=== PATIENT | female | born 1985 | race Caucasian/White ===

== ENCOUNTER 2022-11-19 09:20 | Emergency (ER) | payer MEDICAID ==
[~2022-11-19] VITALS: Ht 172.7 cm; Wt 69.0 kg
[2022-11-19] MEDS ORDERED: LACT10SY PO (09:36)
[2022-11-19] MEDS ORDERED: GABA300 PO (09:36)
[2022-11-19] MEDS ORDERED: POTA10T (09:36)
[2022-11-19] MEDS ORDERED: LATUDA20 M1 (09:37)
[2022-11-19] MEDS ORDERED: SPIR50 PO (09:37)
[2022-11-19] MEDS ORDERED: Inderal40 MG (09:37)
[2022-11-19] MEDS ORDERED: FURO40 (09:38)
[2022-11-19] MEDS ORDERED: ONDA4 PO (09:38)
[2022-11-19 09:45] LABS: BASOPHILS ABSOLUTE AUTO 0.05 K/mm3 (0.00-0.23); BASOPHILS PERCENT AUTO 1 % (0-2); EOSINOPHILS ABSOLUTE AUTO 0.11 K/mm3 (0.00-0.68); EOSINOPHILS PERCENT AUTO 3 % (0-6); Hematocrit 36.4 % (33.0-51.0); IMMATURE GRAN ABSOLUTE AUTO 0.02 K/mm3 (0.00-0.10); IMMATURE GRAN PERCENT AUTO 1 % (0-1); LYMPHOCYTES ABSOLUTE AUTO 0.63 K/mm3 (0.84-5.20); LYMPHOCYTES PERCENT AUTO 15 % (21-46); MONOCYTES ABSOLUTE AUTO 0.62 K/mm3 (0.16-1.47); MONOCYTES PERCENT AUTO 15 % (4-13); Mean Corpuscular HGB 32.3 pg (26.0-34.0); Mean Corpuscular Volume 98 fL (80-100); Mean Platelet Volume 11.4 fL (9.1-12.4); NEUTROPHILS ABSOLUTE AUTO 2.86 K/mm3 (1.96-9.15); NEUTROPHILS PERCENT AUTO 67 % (41-73); Platelet Count 69 K/mm3 (150-400); RDW Coefficient Variation 18.6 % (11.7-14.2); RDW Standard Deviation 66.2 fL (35.1-46.3); Red Blood Cell Count 3.72 M/mm3 (3.80-5.20); White Blood Cell Count 4.29 K/mm3 (4.00-11.30)
[2022-11-19 10:00] LABS: Albumin, Blood 2.7 g/dL (3.4-5.0); Albumin/Globulin Ratio 0.7 (0.8-1.8); Bilirubin, Total 3.2 mg/dL (0.1-1.0); Bun/Creatinine Ratio 12.3 (12.0-20.0); Calcium, Blood 8.5 mg/dL (8.5-10.1); Creatinine, Blood 0.65 mg/dL (0.40-1.00); Globulin, Blood 3.7 g/dL (2.2-4.0); Potassium, Blood 3.9 mmol/L (3.5-5.5); Total Protein, Blood 6.4 g/dL (6.4-8.2)
[2022-11-19] MEDS ORDERED: FURO20 PO (10:02)
[2022-11-19] MEDS ORDERED: BUPR75 PO (10:03)
[2022-11-19] MEDS ORDERED: MIDO5 PO (10:03)
[2022-11-19] MEDS ORDERED: PROP10 PO ×2 (10:07→11:57)
[2022-11-19] MEDS ORDERED: FAMO40 PO (10:07)
[2022-11-19] MEDS ORDERED: Celexa20 MG PO ×2 (10:08→11:57)
[2022-11-19] MEDS ORDERED: SPIR25 PO ×2 (10:08→11:57)
[2022-11-19] MEDS ORDERED: RIFA550T2 PO (10:09)
[2022-11-19 11:45] VITALS: BP 89/58
[2022-11-19] MEDS ORDERED: LATUDA20 M1 PO (11:57)
[2022-11-19] MEDS ORDERED: Lasix20 MG PO (11:57)
[2022-11-19] MEDS ORDERED: Neurontin 300300 MG PO (11:57)
[2022-11-19] MEDS ORDERED: POTCHL20ER PO (11:57)
[2022-11-19] MEDS ORDERED: IBUP800 PO (11:57)
[2022-11-19] MEDS ORDERED: Pepcid40 MG PO (11:57)
== END 2022-11-19 12:40 | disposition home or self-care (01) ==
LOC: ER 09:20
PROVIDERS: Physician Assistant
DX: R51.9 Headache, unspecified (principal); R10.84 Generalized abdominal pain; K74.60 Unspecified cirrhosis of liver; T76.11XA Adult physical abuse, suspected, initial encounter; Z76.0 Encounter for issue of repeat prescription; Z79.899 Other long term (current) drug therapy
CPT/HCPCS: 70450; 74177; 80053; 82140; 85025; 93005; 93010; 96361; 96374-59; 99285-25; A9270; J1885; J7030; Q9967

== ENCOUNTER 2022-11-20 23:23 | Emergency (ER) | payer OTHER ==
[~2022-11-20] VITALS: Ht 172.7 cm; Wt 69.0 kg
[~2022-11-20 23:23] MED LIST: BUPR75 PO; Celexa20 MG PO; FAMO40 PO; FURO20 PO; FURO40; GABA300 PO; IBUP800 PO; Inderal40 MG; LACT10SY PO; LATUDA20 M1; LATUDA20 M1 PO; Lasix20 MG PO; MIDO5 PO; Neurontin 300300 MG PO; ONDA4 PO; POTA10T; POTCHL20ER PO; PROP10 PO; Pepcid40 MG PO; RIFA550T2 PO; SPIR25 PO; SPIR50 PO
[2022-11-20 23:36] VITALS: BP 128/72
[2022-11-21 01:07] LABS: Source, Urine Clean Catch
[2022-11-21 01:11] LABS: Bilirubin, Urine Neg (Neg); Blood, Urine 3+ (Neg); Glucose Qualitative, Urine Neg (Neg); Ketones, Urine Neg (Neg); Leukocyte Esterase, Urine 3+ (Neg); Nitrite, Urine Pos (Neg); Protein, Urine 1+ (Neg); Specific Gravity, Urine 1.015 (1.003-1.022); Urobilinogen, Urine 2+ (Normal); pH, Urine 6.5 (5.0-8.0)
[2022-11-21 01:16] LABS: Appearance, Urine Hazy (Clear); Color, Urine Yellow (P-Yellow)
[2022-11-21 01:21] LABS: Bacteria Many /hpf; Red Blood Cells, Urine 0-2 /hpf (0-2); Squamous Epithelial Cells Rare /hpf (Few); White Blood Cells, Urine TNTC /hpf (0-5)
[2022-11-21] MEDS ORDERED: SULTRIDS PO (01:55)
[2022-11-21] MEDS ORDERED: ONDA4ODT MM (01:55)
[2022-11-22] MEDS ORDERED: AMOCLA875 PO (21:54)
== END 2022-11-21 02:30 | disposition home or self-care (01) ==
LOC: ER 23:23
PROVIDERS: Surgery
DX: N39.0 Urinary tract infection, site not specified (principal); Z79.899 Other long term (current) drug therapy; J45.909 Unspecified asthma, uncomplicated
CPT/HCPCS: 81001; 87077; 87086; 87186; 94640; 94664; 99283-25; A9270

== ENCOUNTER 2022-11-22 15:56 | Emergency (ER) | payer OTHER ==
[~2022-11-22] VITALS: Ht 172.7 cm; Wt 67.1 kg
[~2022-11-22 15:56] MED LIST changes: +ONDA4ODT MM; +SULTRIDS PO
[2022-11-22 17:11] LABS: BASOPHILS ABSOLUTE AUTO 0.06 K/mm3 (0.00-0.23); BASOPHILS PERCENT AUTO 2 % (0-2); EOSINOPHILS ABSOLUTE AUTO 0.08 K/mm3 (0.00-0.68); EOSINOPHILS PERCENT AUTO 2 % (0-6); Hematocrit 35.3 % (33.0-51.0); Hemoglobin 11.8 g/dL (11.5-16.0); IMMATURE GRAN ABSOLUTE AUTO 0.01 K/mm3 (0.00-0.10); IMMATURE GRAN PERCENT AUTO 0 % (0-1); LYMPHOCYTES ABSOLUTE AUTO 1.31 K/mm3 (0.84-5.20); LYMPHOCYTES PERCENT AUTO 34 % (21-46); MONOCYTES ABSOLUTE AUTO 0.37 K/mm3 (0.16-1.47); MONOCYTES PERCENT AUTO 10 % (4-13); Mean Corpuscular HGB 32.4 pg (26.0-34.0); Mean Corpuscular HGB Conc 33.4 g/dL (31.5-36.5); Mean Corpuscular Volume 97 fL (80-100); Mean Platelet Volume 11.5 fL (9.1-12.4); NEUTROPHILS ABSOLUTE AUTO 2.08 K/mm3 (1.96-9.15); NEUTROPHILS PERCENT AUTO 53 % (41-73); Platelet Count 79 K/mm3 (150-400); RDW Coefficient Variation 18.8 % (11.7-14.2); RDW Standard Deviation 66.3 fL (35.1-46.3); Red Blood Cell Count 3.64 M/mm3 (3.80-5.20); White Blood Cell Count 3.91 K/mm3 (4.00-11.30)
[2022-11-22 17:31] LABS: Albumin, Blood 2.7 g/dL (3.4-5.0); Albumin/Globulin Ratio 0.7 (0.8-1.8); Bilirubin, Total 2.7 mg/dL (0.1-1.0); Bun/Creatinine Ratio 15.4 (12.0-20.0); Calcium, Blood 8.7 mg/dL (8.5-10.1); Creatinine, Blood 0.78 mg/dL (0.40-1.00); Globulin, Blood 3.7 g/dL (2.2-4.0); Potassium, Blood 3.7 mmol/L (3.5-5.5); Total Protein, Blood 6.4 g/dL (6.4-8.2)
[2022-11-22 18:49] LABS: Ethanol (Alcohol), Blood, Med <3 mg/dL; Magnesium, Blood 1.7 mg/dL (1.6-2.4)
[2022-11-22 21:47] LABS: Source, Urine Clean Catch
[2022-11-22 21:51] LABS: Bilirubin, Urine Neg (Neg); Blood, Urine 1+ (Neg); Glucose Qualitative, Urine Neg (Neg); Ketones, Urine Neg (Neg); Leukocyte Esterase, Urine 3+ (Neg); Nitrite, Urine Pos (Neg); Protein, Urine 1+ (Neg); Specific Gravity, Urine 1.015 (1.003-1.022); Urobilinogen, Urine 3+ (Normal)
[2022-11-22 21:53] VITALS: BP 124/80
[2022-11-22 21:53] LABS: Appearance, Urine Hazy (Clear); Color, Urine Yellow (P-Yellow)
[2022-11-22] MEDS ORDERED: AMOCLA875 PO (21:54)
[2022-11-22 22:00] LABS: Bacteria Many /hpf; Granular Casts 0-2 /lpf (0); Red Blood Cells, Urine 0-2 /hpf (0-2); Squamous Epithelial Cells Few /hpf (Few); White Blood Cells, Urine TNTC /hpf (0-5)
[2022-11-22 22:05] LABS: U Amphetamine Screen DETECTED; U Barbituate Screen Not Detected; U Benzodiazapine Screen DETECTED; U Buprenorphine Screen DETECTED; U Cannabinoids Screen Not Detected; U Cocaine Screen Not Detected; U Methadone Screen Not Detected; U Methamphetamine Screen DETECTED; U Opiates Screen Not Detected; U Oxycodone Screen Not Detected; U Phencyclidine Screen Not Detected; U Propoxyphene Screen Not Detected
== END 2022-11-22 22:04 | disposition home or self-care (01) ==
LOC: ER 15:56 → PCU 20:23 → ER 20:23
PROVIDERS: Emergency Medicine; Student in an Organized Health Care Education/Training Program
DX: K76.82 Hepatic encephalopathy (principal); N39.0 Urinary tract infection, site not specified; B96.20 Unspecified Escherichia coli [E. coli] as the cause of diseases classified elsewhere; Z16.12 Extended spectrum beta lactamase (ESBL) resistance; I95.89 Other hypotension; J45.909 Unspecified asthma, uncomplicated; N18.9 Chronic kidney disease, unspecified; Z79.51 Long term (current) use of inhaled steroids; Z79.2 Long term (current) use of antibiotics; Z79.899 Other long term (current) drug therapy
CPT/HCPCS: 80053; 81001; 82140; 83605; 83735; 85025; 87077; 87086; 87186; 93005; 93010; 94640; 94664; 96374; 96375; 99285-25; A9270; G0480; J0295; J1885; J7030